=== PATIENT | male | born 1965 | race Caucasian/White ===

== ENCOUNTER 2016-10-12 11:54 | Observation (INO) | payer OTHER ==
[~2016-10-12] VITALS: Ht 177.8 cm; Wt 76.1 kg
--- NOTE | 2016-10-12 11:54 | NUR ---
PT TO ROOM 9 VIA STRETCHER BY EMS.
[2016-10-12 12:14] LABS: HEMATOCRIT 41.9 % (39.0-50.0); IMMATURE GRANULOCYTES 0.2 % (0.0-1.0); MEAN CELL VOLUME 96.3 fL CALC (80.0-100.0); MEAN CORPUSCULAR HGB 32.2 pG CALC (26.0-32.0); MEAN CORPUSCULAR HGB CONC 33.4 g/L CALC (32.0-36.0); NEUT# 5.82 thou/uL (1.82-7.42); RED BLOOD COUNT 4.35 mill/uL (4.70-6.10); RED CELL DISTRI WIDTH 12.7 % (11.5-15.5)
--- NOTE | 2016-10-12 12:15 | NUR ---
PT STATES HE HAS NO CP OR SOB, STATES "THEY WERE WORRIED BECUASE MY BP WAS HIGH. SKIN PWD. LUNGS CLEAR.
[2016-10-12 12:28] LABS: PROTHROMBIN TIME 11.1 SECONDS (9.0-12.5)
[2016-10-12 12:32] LABS: ALBUMIN 4.4 g/dL (3.2-5.0); ALKALINE PHOSPHATASE 114 u/l (38-126); AMYLASE 124 u/l (30-110); ANION GAP 14 (6-22 (CALC)); BILIRUBIN, TOTAL 0.9 mg/dL (0.0-1.4); BUN 8 mg/dL (9-20); BUN/CREATININE RATIO 8 (12-20 (CALC)); CALCIUM 9.1 mg/dL (8.4-10.2); CARBON DIOXIDE 25 mmol/l (22-30); CHLORIDE 106 mmol/l (95-108); CREATININE 0.9 mg/dL (0.7-1.3); GFR > 60 ML/MIN (>=60 (CALC)); GFR FOR AFR.AMER. > 60 ML/MIN (>=60 (CALC)); GLUCOSE 90 mg/dL (75-110); LIPASE 548 u/l (23-300); POTASSIUM 4.9 mmol/l (3.5-5.1); SGOT/AST 49 u/l (17-59); SGPT/ALT 26 u/l (21-72); SODIUM 140 mmol/l (137-146); TOTAL PROTEIN 7.8 g/dL (6.3-8.2)
[2016-10-12 12:43] LABS: MYOGLOBIN 49 ng/mL (0 - 121)
--- NOTE | 2016-10-12 12:50 | NUR ---
MD NOTIFIED OF BP. PT ASYMPTOMATIC. DENIES CP OR PRESSURE, NO SOB
--- NOTE | 2016-10-12 13:30 | NUR ---
DR ASTUDILLO AT BEDSIDE TO ASSESS.
[2016-10-12 13:32] LABS: URINE BILIRUBIN - DIPSTICK NEGATIVE (NEGATIVE); URINE BLOOD DIPSTICK TRACE-INTACT (NEGATIVE); URINE CLARITY CLEAR; URINE COLOR YELLOW; URINE GLUCOSE - DIPSTICK NEGATIVE (NEGATIVE); URINE KETONE NEGATIVE (NEGATIVE); URINE LEUK ESTERASE NEGATIVE (NEGATIVE); URINE NITRITE - DIPSTICK NEGATIVE (Negative); URINE PROTEIN - DIPSTICK NEGATIVE (NEG-TRACE); URINE SPECIFIC GRAVITY <=1.005; URINE UROBILINOGEN - DIPSTICK 0.2 E.U./dL (0.2)
--- NOTE | 2016-10-12 13:55 | NUR ---
CALLED REPORT TO CLEMENTE CEVALLOS. PT TRANSPORTED TO [facility] VIA IN STABLE CONDITION ON TELEMETRY.
--- NOTE | 2016-10-12 14:12 | NUR ---
PT ARRIVED TO FLOOR AT 1405 VIA WC ACCOMPANIED BY CLEMENTE SOLOMON. PT AMBUALTES INDEPENDENTLY, STEADY GAIT. DENIES CP. NO SOB. PT ORIENTED TO ROOM AND EQUIPMENT. REPORTING OF CONCERNS ENCOURAGED. PLAN OF CARE DISCUSSED. CALL LIGHT REVIEWED AND IN REACH. PT STATES UNDERSTANDING.
[2016-10-12 14:21] VITALS: BP 145/85
[2016-10-12 16:54] VITALS: BP 124/62
--- NOTE | 2016-10-12 17:45 | NUR ---
PT DENIES CHEST PAIN. NO SOB. REPORTING OF CONCERNS ENCOURAGED. PT STATES UNDERSTANDING. VISITOR AT BEDSIDE.
--- NOTE | 2016-10-12 19:00 | NUR ---
RECEIVED REPORT ON PATIENT. NO ACUTE DISTRESS NOTED. PATIENT SEATED UP IN BED.
[2016-10-12 19:50] VITALS: BP 115/68
--- NOTE | 2016-10-13 | NUR ---
PATIENT RESTING IN BED QUIETLY. NO ACUTE DISTRESS NOTED
[2016-10-13 00:11] VITALS: BP 121/71
--- NOTE | 2016-10-13 04:30 | NUR ---
PATIENT IS AWAKE AND IN NO APPARENT DISTRESS. IV ACCESS CAME UNDONE. BED IS WET FROM IVF. LINEN CHANGED.
[2016-10-13 04:35] VITALS: BP 119/74
[2016-10-13 06:05] LABS: HEMATOCRIT 39.8 % (39.0-50.0); HEMOGLOBIN 12.8 g/dl (14.0-18.0); IMMATURE GRANULOCYTES 0.5 % (0.0-1.0); MEAN CORPUSCULAR HGB 31.8 pG CALC (26.0-32.0); MEAN CORPUSCULAR HGB CONC 32.2 g/L CALC (32.0-36.0); NEUT# 5.16 thou/uL (1.82-7.42); RED BLOOD COUNT 4.02 mill/uL (4.70-6.10); RED CELL DISTRI WIDTH 12.8 % (11.5-15.5)
[2016-10-13 06:31] LABS: AMYLASE 107 u/l (30-110); ANION GAP 14 (6-22 (CALC)); BUN 12 mg/dL (9-20); BUN/CREATININE RATIO 12 (12-20 (CALC)); CALCULATED LDLCHOLESTEROL 93 mg/dL (62-129 (CALC)); CARBON DIOXIDE 24 mmol/l (22-30); CHLORIDE 107 mmol/l (95-108); GFR > 60 ML/MIN (>=60 (CALC)); GFR FOR AFR.AMER. > 60 ML/MIN (>=60 (CALC)); GLUCOSE 82 mg/dL (75-110); HDL CHOLESTEROL 46 mg/dL (>=40); LIPASE 217 u/l (23-300); POTASSIUM 4.6 mmol/l (3.5-5.1); SODIUM 140 mmol/l (137-146); TOTAL CHOLESTEROL 155 mg/dl (0-199); TOTAL TRIGLYCERIDES 82 mg/dl (30-149); VLDL CHOLESTROL 16 mg/dl (5-56 (CALC))
--- NOTE | 2016-10-13 07:15 | NUR ---
REPORT RECEIVED FROM CLEMENTE LUKE. PT SLEEPING AT THIS TIME. CALL LIGHT WITHIN REACH. WILL CONTINUE TO MONITOR.
[2016-10-13 08:51] VITALS: BP 118/62
--- NOTE | 2016-10-13 09:00 | NUR ---
PT SITTING UPRIGHT IN BED. DENIES PAIN. NO DIZZINESS. REPORTING OF CONCERNS ENCOURAGED. PLAN OF CARE DISCUSSED. PT STATES ANTICIPATION OF DISCHARGE. DISCHARGE PROCESS DISCUSSED. PT STATES UNDERSTANDING.
[2016-10-13] MEDS ORDERED: NORVASC PO (10:17)
[2016-10-13] MEDS ORDERED: ASPIRIN EC81 MG PO (10:17)
--- NOTE | 2016-10-13 11:40 | NUR ---
Discharge instructions given. Patient verbalizes understanding of same. Discharged in stable condition via Ambulatory to Home with friend. All belongings sent with pt.
== END 2016-10-13 11:40 | disposition home or self-care (01) | DRG 313 ==
LOC: ENPENDDIS → ED 11:54 → ED-I 13:08 → ED 13:14 → MS2 13:15
PROVIDERS: Emergency Medicine; ADMIT Internal Medicine; ATTEND Internal Medicine
DX: R07.89 Other chest pain (principal); I10 Essential (primary) hypertension; F17.210 Nicotine dependence, cigarettes, uncomplicated
CPT/HCPCS: G0378

== ENCOUNTER 2017-11-27 04:54 | Observation (INO) | payer OTHER ==
[~2017-11-27] VITALS: Ht 177.8 cm; Wt 68.4 kg
[~2017-11-27 04:54] MED LIST: ASPIRIN EC81 MG PO; NORVASC PO
[2017-11-27 05:21] LABS: HEMATOCRIT 39.6 % (39.0-50.0); HEMOGLOBIN 13.5 g/dl (14.0-18.0); IMMATURE GRANULOCYTES 0.3 % (0.0-1.0); MEAN CELL VOLUME 97.1 fL CALC (80.0-100.0); MEAN CORPUSCULAR HGB 33.1 pG CALC (26.0-32.0); MEAN CORPUSCULAR HGB CONC 34.1 g/L CALC (32.0-36.0); NEUT# 3.59 thou/uL (1.82-7.42); RED BLOOD COUNT 4.08 mill/uL (4.70-6.10); RED CELL DISTRI WIDTH 12.2 % (11.5-15.5)
[2017-11-27 05:30] LABS: ALBUMIN 3.9 g/dL (3.2-5.0); ALKALINE PHOSPHATASE 84 u/l (38-126); ANION GAP 15 (6-22 (CALC)); BILIRUBIN, TOTAL 0.8 mg/dL (0.0-1.4); BUN 14 mg/dL (9-20); BUN/CREATININE RATIO 17 (12-20 (CALC)); CARBON DIOXIDE 22 mmol/l (22-30); CHLORIDE 108 mmol/l (95-108); CREATININE 0.8 mg/dL (0.7-1.3); GFR > 60 ML/MIN (>=60 (CALC)); GFR FOR AFR.AMER. > 60 ML/MIN (>=60 (CALC)); POTASSIUM 3.8 mmol/l (3.5-5.1); SGOT/AST 21 u/l (17-59); SGPT/ALT 30 u/l (21-72); SODIUM 141 mmol/l (137-146); TOTAL PROTEIN 6.7 g/dL (6.3-8.2)
[2017-11-27 05:42] LABS: MYOGLOBIN 26 ng/mL (0 - 121)
[2017-11-27 07:02] VITALS: BP 136/90
[2017-11-27 11:30] VITALS: BP 121/70
[2017-11-27] MEDS ORDERED: HYDROCORTISONE2.5 % RE (13:33)
[2017-11-27] MEDS ORDERED: VALIUM5 MG PO (13:34)
[2017-11-27 15:43] VITALS: BP 137/81
== END 2017-11-27 18:05 | disposition home or self-care (01) | DRG 313 ==
LOC: ED 04:54 → ED-I 06:16 → ED 06:25 → ICU 06:26
PROVIDERS: Emergency Medicine; ADMIT Internal Medicine; ATTEND Internal Medicine
DX: R07.89 Other chest pain (principal); R20.2 Paresthesia of skin; I10 Essential (primary) hypertension; F17.210 Nicotine dependence, cigarettes, uncomplicated; K64.9 Unspecified hemorrhoids